=== PATIENT | female | born 1965 | race Caucasian/White ===

== ENCOUNTER 2021-09-27 21:37 | Emergency (ER) | payer OTHER ==
[~2021-09-27] VITALS: Ht 170.2 cm; Wt 122.5 kg
[~2021-09-27 21:37] MED LIST: ALDACTONE25 MG PO; ANTIVERT25 MG PO; CLARITIN-D 24 H1 TA1 PO; FISH OIL 1,001000 M2 PO; HYDROCHLOROTHIA25 M2 PO; ZOFRAN ODT4 MG PO
[2021-09-27 22:17] LABS: ABSOLUTE EOSINOPHILS 0.2 thou/uL (0.0-0.7); ABSOLUTE LYMPHOCYTES 2.4 thou/uL (0.8-5.3); ABSOLUTE MONOCYTES 0.4 thou/uL (0.0-1.2); ABSOLUTE NEUTROPHILS 2.4 thou/uL (1.6-8.1); BASOPHILS 0.9 %; HEMATOCRIT 38.6 % (37.0-47.0); HEMOGLOBIN 12.7 gm/dL (12.0-15.0); MCH 28.5 pg (26.0-34.0); MCHC 32.9 g/dL (28.0-37.0); MCV 86.7 fL (80.0-100.0); MONOCYTES 7.5 %; MPV 8.2 fl. (7.2-11.1); NUCLEATED RBCS 0 /100WBC; PLATELET COUNT* 229 thou/uL (150-400); POLYS 43.6 %; RBC 4.46 mil/uL (4.20-5.00); RDW-CV 14.8 % (10.5-14.5); WBC 5.6 thou/uL (4.0-11.0)
[2021-09-27 22:38] LABS: POTASSIUM 3.5 mmol/L (3.5-5.1)
[2021-09-27 22:47] LABS: CALCIUM 8.5 mg/dL (8.5-10.1); CREATININE 0.9 mg/dL (0.6-1.3)
[2021-09-28 00:14] VITALS: BP 178/68
== END 2021-09-28 00:15 | disposition home or self-care (01) ==
LOC: M.ERS 21:37
PROVIDERS: Emergency Medicine
DX: R05.9 Cough, unspecified (principal); Z90.49 Acquired absence of other specified parts of digestive tract; Z98.890 Other specified postprocedural states; Y04.2XXA Assault by strike against or bumped into by another person, initial encounter; Y93.89 Activity, other specified; Y92.89 Other specified places as the place of occurrence of the external cause; Y99.8 Other external cause status